=== PATIENT | female | born 1945 | race Caucasian/White ===

== ENCOUNTER → 2017-08-23 | Outpatient (CLI) | payer OTHER ==
[~2017-08-23] MED LIST: PERCOCET 5-3251 EACH PO; PHENERGAN 25 MG25 M1 PO; PROTONIX40 M2; VENTOLIN17 GM INH; WELLBUTRIN XL150 M1; ZPAK PO
== END ==
LOC: MRI 07:07
DX: S83.242A Other tear of medial meniscus, current injury, left knee, initial encounter (principal); M17.12 Unilateral primary osteoarthritis, left knee; M25.462 Effusion, left knee; X58.XXXA Exposure to other specified factors, initial encounter; Y93.89 Activity, other specified; Y92.89 Other specified places as the place of occurrence of the external cause; Y99.8 Other external cause status